=== PATIENT | male | born 1975 | race Two or more races ===

== ENCOUNTER 2017-09-27 22:58 | Emergency (ER) | payer OTHER, SELFPAY ==
[~2017-09-27] VITALS: Ht 175.3 cm; Wt 57.0 kg
[2017-09-27] MEDS ORDERED: CEFTRIAXONE 1,000 MG ONE (23:25)
[2017-09-27] MEDS ORDERED: AZITHROMYCIN 500 MG TABLET ONE (23:25)
[2017-09-27] MEDS ORDERED: ACETAMINOPHEN 325 MG TABLET ONE (23:25)
[2017-09-27] MEDS ORDERED: LIDOCAINE-MPF 1%, 2ML ONE (23:26)
[2017-09-27] MEDS ORDERED: CEFTRIAXONE 250 MG IM ONE (23:30)
[2017-09-27] MEDS ORDERED: AZITHROMYCIN 500 MG TABLET PO ONE (23:30)
[2017-09-27 23:33] LABS: CULTURE INDICATED? YES; MICROSCOPIC INDICATED
[2017-09-28] MEDS ORDERED: ACETAMINOPHEN 325 MG TABLET PO ONE
[2017-09-28 00:15] VITALS: BP 136/72
== END 2017-09-28 00:19 | disposition home or self-care (01) ==
LOC: ED 23:25
DX: A54.01 Gonococcal cystitis and urethritis, unspecified (principal)
CPT/HCPCS: 81001; 87086; 87491; 87591; 96372; 99284; J0696

== ENCOUNTER 2019-10-24 00:38 | Emergency (ER) | payer OTHER ==
[~2019-10-24] VITALS: Ht 175.3 cm; Wt 59.8 kg
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
[2019-10-24 01:51] VITALS: BP 118/74
--- NOTE | 2019-10-24 01:51 | NUR ---
PT RESTING IN RTAMPA, NAD, NO ACUTE CHANGES IN CONDITION, DENIES ADDITIONAL NEEDS AT THIS TIME. WCTM. WAITING FOR RECHECK.
--- NOTE | 2019-10-24 02:29 | NUR ---
Patient given discharge instructions and they have confirmed that they understand the instructions. Patient ambulatory with steady gait. PT NAD, VSS. NO BELONGINGS LEFT IN ROOM AFTER DISCHARGE.
== END 2019-10-24 02:30 | disposition home or self-care (01) ==
LOC: ED 02:15
DX: S92.511A Displaced fracture of proximal phalanx of right lesser toe(s), initial encounter for closed fracture (principal); X58.XXXA Exposure to other specified factors, initial encounter; Y93.89 Activity, other specified; Y92.89 Other specified places as the place of occurrence of the external cause; Y99.8 Other external cause status
CPT/HCPCS: 99283

== ENCOUNTER 2019-11-18 23:25 | Emergency (ER) | payer OTHER ==
[~2019-11-18] VITALS: Ht 172.7 cm; Wt 64.0 kg
[2019-11-18 23:30] VITALS: BP 130/95
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
[2019-11-19] MEDS ORDERED: NEOSPORIN OINT. PKT 1 PACKET ONE (01:17)
--- NOTE | 2019-11-19 01:35 | NUR ---
NEOMYCIN APPLIED TO LACERATION ON BACK OF PT LEFT EAR. PT PROVIDED WITH DISCHARGE INSTRUCTIONS. DENIES ANY NEEDS OR CONCERNS. DISCHARGED WITHOUT ISSUE.
== END 2019-11-19 01:37 | disposition home or self-care (01) ==
LOC: ED 11-19 01:01
DX: S01.312A Laceration without foreign body of left ear, initial encounter (principal); F10.120 Alcohol abuse with intoxication, uncomplicated; Y04.0XXA Assault by unarmed brawl or fight, initial encounter; Y93.89 Activity, other specified; Y92.89 Other specified places as the place of occurrence of the external cause; Y99.8 Other external cause status; Y90.9 Presence of alcohol in blood, level not specified
CPT/HCPCS: 70450; 70486; 99285

== ENCOUNTER 2020-07-07 11:42 | Emergency (ER) | payer OTHER ==
[~2020-07-07] VITALS: Ht 172.7 cm; Wt 57.6 kg
[2020-07-07 11:50] VITALS: BP 118/83
[2020-07-07] MEDS ORDERED: CEFTRIAXONE 1,000 MG IM ONE (12:00)
--- NOTE | 2020-07-07 12:21 | NUR ---
PT AMBULATORY TO ROOM 8 W/ C/O GENITAL DISCHARGE AND PAINFUL URINATION STARTED 3-4 DAYS AGO. PT RESTING ON GURNEY. AHUJA.
[2020-07-07] MEDS ORDERED: CEFTRIAXONE 1,000 MG ONE (12:30)
--- NOTE | 2020-07-07 12:52 | NUR ---
PT RESTING ON GURNEY. NADN. MARCELO.
== END 2020-07-07 13:11 | disposition home or self-care (01) ==
LOC: ED 13:00
DX: R36.9 Urethral discharge, unspecified (principal); Z20.2 Contact with and (suspected) exposure to infections with a predominantly sexual mode of transmission
CPT/HCPCS: 87491; 87591; 96372; 99283; J0696

== ENCOUNTER 2020-07-30 19:18 | Emergency (ER) | payer OTHER ==
[~2020-07-30] VITALS: Ht 172.7 cm; Wt 57.0 kg
[2020-07-30 19:25] VITALS: BP 129/82
[2020-07-30] MEDS ORDERED: LIDOCAINE-MPF 1%, 2ML INFIL ONE (20:00)
[2020-07-30] MEDS ORDERED: LIDOCAINE 1%, 10ML INFIL ONE (20:00)
--- NOTE | 2020-07-30 21:13 | NUR ---
WIDTH STRIPPER: PT WALKED BACK FROM LOBBY TO ROOM. STEADY UPON AMBULATION. NO ACUTE DISTRESS NOTED.
[2020-07-30] MEDS ORDERED: LIDOCAINE-MPF 1%, 5ML ONE ×2 (21:42→22:31)
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
[2020-07-30] MEDS ORDERED: LIDOCAINE-MPF 1%, 5ML INFIL ONE (22:30)
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
== END 2020-07-30 22:48 | disposition home or self-care (01) ==
LOC: ED 22:01
DX: L03.011 Cellulitis of right finger (principal)
CPT/HCPCS: 10060; 99283